=== PATIENT | male | born 1960 | race Caucasian/White ===

== ENCOUNTER → 2018-02-12 06:30 | Outpatient (CLI) | payer BC, SELFPAY ==
[2018-02-12 09:00] LABS: AST(SGOT) 15 U/L (15-37); Alanine Aminotransfer ALT/SGPT 25 U/L (16-61); Albumin, Serum 3.8 g/dL (3.2-5.0); Alkaline Phosphatase 35 U/L (45-117); Bilirubin, Direct 0.17 mg/dL (0.00-0.30); Cholesterol 144 mg/dL (200); Globulin 2.9 g/dL (2.2-4.2); High Density Lipoprotein 45 mg/dL; Protein, Total 6.7 g/dL (6.4-8.2); Triglycerides 108 mg/dL; Very Low Density Lipoprotein 22 mg/dL (5-40)
== END ==
PROVIDERS: Family Provider Internal Medicine; PCP Internal Medicine; Visit Provider Internal Medicine Cardiovascular Disease
DX: R07.9 Chest pain, unspecified (principal)
CPT/HCPCS: 36415; 80061; 80076

== ENCOUNTER → 2018-02-25 09:43 | Outpatient (CLI) | payer BC, SELFPAY ==
--- NOTE | 2018-02-25 09:45 | ECHOD_ITS ---
Reason For Study: CHEST PAIN Procedure This was a 2D Doppler, Color Flow transthoracic echocardiogram. Exam performed in department. Left Ventricle Normal size and thickness. The estimated ejection fraction is 65 %. Stage 2 diastolic dysfunction. No regional wall motion abnormalities noted. Right Ventricle Mildly dilated right ventricle. Normal systolic function. Atria The left atrium is mildly enlarged. The right atrium is mildly enlarged. Normal atrial septum. Mitral Valve The mitral valve is structurally normal. No prolapse or stenosis seen. Trivial mitral valve insufficiency. Tricuspid Valve Normal tricuspid valve. Trivial tricuspid valve insufficiency. Right ventricular systolic pressure estimated to be 23 mmHg. Aortic Valve Normal aortic valve. Trisinus/trileaflet aortic valve. Pulmonic Valve Normal pulmonic valve. Trivial pulmonic valve insufficiency. Great Vessels Normal aortic root. Normal arch. Normal inferior vena cava. Inferior vena cava collapse with sniff. Pericardium/Pleural No pericardial effusion. MMode/2D Measurements & Calculations LVIDd: 4.3 cm IVSd: 0.89 cm Ao root diam: 3.0 cm LVIDs: 3.0 cm LVPWd: 0.82 cm RVDd: 4.1 cm FS: 30.2 % LAV(MOD-bp): 67.1 ml LA A4 area: 21.6 cm2 RA A4 area: 18.5 cm2 LAV(MOD-bp) Indexed: 32.4 ml/m2 LAV(MOD-sp2): 71.3 ml LAV(MOD-sp4): 61.2 ml Doppler Measurements & Calculations MV E max eclio: 69.6 cm/sec Med Peak E' Celio: 9.7 cm/sec Ao V2 max: 105.8 cm/sec MV A max celio: 40.5 cm/sec E/E' med: 7.2 Ao max P.5 mmHg MV E/A: 1.7 LV V1 max: 87.7 cm/sec PA V2 max: 120.2 cm/sec PI end-d celio: 91.7 cm/sec LV V1 max P.6 mmHg TR max celio: 214.6 cm/sec TR max P.4 mmHg Interpretation Summary The estimated ejection fraction is 65 %. Stage 2 diastolic dysfunction. Mildly dilated right ventricle. The left atrium is mildly enlarged. Trivial mitral valve insufficiency. Right ventricular systolic pressure estimated to be 23 mmHg. There is no comparison study available. Ordering Physician: Jair Sanz Referring Physician: JAE TY MD Performed By: Sosa Chery, NIMISHA, RVT
== END ==
PROVIDERS: Family Provider Internal Medicine; PCP Internal Medicine; Visit Provider Internal Medicine Cardiovascular Disease
DX: R07.9 Chest pain, unspecified (principal)
CPT/HCPCS: 93306

== ENCOUNTER → 2018-04-01 13:38 | Outpatient (CLI) | payer BC, SELFPAY ==
--- NOTE | 2018-04-01 13:42 | STE_ITS ---
Reason For Study: CHEST PAIN Stress Results Protocol: Dillon Protocol Maximum Predicted HR: 163 bpm Target HR: 139 bpm% Max imum Predicted HR: 90 % DurationHeart Rate Stage (mm:ss) (bpm) BP BASELINE 71 138/84 STAGE 1 3:00 10 5 150/82 STAGE 2 3:00 12 7 158/72 STAGE 3 3:00 14 6 160/74 RECOVERY 98 132/80 Stress Duration: 9:00 mm:ss Maximum Stress HR: 146 bpm Baseline Echocardiogram Findings The estimated ejection fraction is 65 %. Stress Echo Wall motion Data Resting WMIntermediate WMStress WM Resting Wall Motion Wall Motion Stress No regional wall motion No regional wall motion abnormalities noted. abnormalities noted. EKG Data Normal intervals are noted. The patient exercised according to the regular Dillon protocol for a total duration of 9:00. The maximum heart rate attained was 146 beats per minute. This was 89% of maximum predicted heart rate. The patient exercised into stage 4 of the Dillon protocol. During stress, there were no ST or T wave changes noted to suggest ischemia. No clinical angina was noted. Interpretation Summary The estimated ejection fraction is 65 %. Normal, adequate, treadmill echocardiogram. Negative for ischemia by EKG and echocardiographic criteria. No anginal symptoms noted. No arrhythmias noted. Average exercise capacity for age. Appropriate blood pressure response to exercise. Test terminated due to dyspnea. Final LVEF of 70%. No complications. Ordering Physician: Jair Sanz Referring Physician: Jair Sanz Performed By: Parish Gottlieb RCS
== END ==
PROVIDERS: Family Provider Internal Medicine; PCP Internal Medicine; Visit Provider Internal Medicine Cardiovascular Disease
DX: R07.9 Chest pain, unspecified (principal)
CPT/HCPCS: 93017; 93350

== ENCOUNTER → 2018-04-22 10:59 | Outpatient (REF) | payer BC, SELFPAY | LOC: CVS 10:59 | PROVIDERS: Family Provider Internal Medicine; PCP Internal Medicine; Visit Provider Internal Medicine Cardiovascular Disease | DX: R00.2 Palpitations (principal) | CPT/HCPCS: 93270 ==

== ENCOUNTER → 2018-04-23 15:58 | Outpatient (CLI) | payer BC, SELFPAY ==
[2018-04-23 17:55] LABS: Anion Gap 7 (5-15); BUN 20 mg/dL (7-18); BUN/Creat Ratio 16.8 RATIO (10-20); Calcium,Total 8.8 mg/dL (8.5-10.1); Chloride 105 mmol/L (98-107); Creatinine, Serum 1.19 mg/dL (0.70-1.30); EST Glomerular Filtration Rate 67 mL/min (>60); Est Glom Filt Rate - Afr Amer 81 mL/min (>60); Glucose 80 mg/dL (74-106); Sodium Level 142 mmol/L (136-145)
== END ==
PROVIDERS: Family Provider Internal Medicine; PCP Internal Medicine; Visit Provider Nurse Practitioner Family
DX: I48.0 Paroxysmal atrial fibrillation (principal); R00.2 Palpitations
CPT/HCPCS: 36415; 80048

== ENCOUNTER → 2019-05-03 | Outpatient (REF) | payer BC, SELFPAY ==
[2019-05-03 09:19] VITALS: BMI 30.9
== END | disposition home or self-care (01) ==
LOC: CVS 10:06
PROVIDERS: Family Provider Internal Medicine; PCP Internal Medicine; Referring Provider Internal Medicine Cardiovascular Disease; Visit Provider Internal Medicine Cardiovascular Disease
DX: G45.9 Transient cerebral ischemic attack, unspecified (principal); I48.0 Paroxysmal atrial fibrillation; R40.4 Transient alteration of awareness
CPT/HCPCS: 93270

== ENCOUNTER → 2020-06-09 | Outpatient (CLI) | payer BC, SELFPAY ==
[2020-05-29 13:16] VITALS: BMI 31.5
--- NOTE | 2020-06-09 10:46 | ECHOD_ITS ---
Reason For Study: CP Procedure This was a 2D Doppler, Color Flow transthoracic echocardiogram. Exam performed in department. Left Ventricle Normal LV size. The estimated ejection fraction is 55 %. No evidence for diastolic dysfunction. No regional wall motion abnormalities noted. Right Ventricle Normal RV size. Normal systolic function. Atria Normal left atrium. Normal right atrium. No doppler evidence for ASD. Mitral Valve There is no mitral valve stenosis. Trivial mitral valve insufficiency. Tricuspid Valve There is no tricuspid stenosis. Trivial tricuspid valve insufficiency. Unable to estimate RV systolic pressure due to insufficient tricuspid regurgitant envelope. Aortic Valve Trisinus/trileaflet aortic valve. There is no aortic stenosis. No aortic valve insufficiency. Pulmonic Valve There is no pulmonic valvular stenosis. No pulmonic valve insufficiency. Great Vessels Normal aortic root. Pericardium/Pleural No pericardial effusion. MMode/2D Measurements & Calculations LVIDd: 4.0 cm IVSd: 1.4 cm LAV(MOD-bp): 61.9 ml LVIDs: 2.7 cm LVPWd: 0.82 cm LAV(MOD-bp) Indexed: 29.0 ml/m2 RVDd: 4.1 cm FS: 31.2 % LAV(MOD-sp2): 54.9 ml LAV(MOD-sp4): 62.2 ml LA A4 area: 22.1 cm2 RA A4 area: 18.2 cm2 Time Measurements MV dec time: 0.20 sec Doppler Measurements & Calculations MV E max celio: 72.1 cm/sec Lat Peak E' Celio: 12.8 cm/sec Med Peak E' Celio: 9.9 cm/sec MV A max celio: 52.0 cm/sec E/E' lat: 5.6 E/E' med: 7.3 MV E/A: 1.4 MV V2 max: 75.1 cm/sec MV P1/2t max celio: 76.4 cm/sec Ao V2 max: 105.5 cm/sec MV max P.3 mmHg MV P1/2t: 51.0 msec Ao max P.4 mmHg MV V2 mean: 40.1 cm/sec MV dec slope: 438.5 cm/sec2 MV mean P.75 mmHg MV V2 VTI: 28.0 cm MVA(P1/2t): 4.3 cm2 LV V1 max: 105.8 cm/sec PA V2 max: 124.2 cm/sec PI end-d celio: 82.8 cm/sec LV V1 max P.5 mmHg Interpretation Summary The estimated ejection fraction is 55 %. No evidence for diastolic dysfunction. Trivial mitral valve insufficiency. Ordering Physician: Jair Sanz Referring Physician: Jair Sanz Performed By: Parish Gottlieb RCS
== END | disposition home or self-care (01) ==
LOC: CVS 10:46
PROVIDERS: PCP Internal Medicine; Referring Provider Internal Medicine Cardiovascular Disease; Visit Provider Internal Medicine Cardiovascular Disease
DX: R07.9 Chest pain, unspecified (principal)
CPT/HCPCS: 93306

== ENCOUNTER → 2020-06-16 | Outpatient (CLI) | payer BC, SELFPAY ==
[2020-05-29 13:16] VITALS: BMI 31.5
--- NOTE | 2020-06-16 09:19 | STE_ITS ---
Reason For Study: Chest Pain Stress Results Protocol: Dillon Protocol Maximum Predicted HR: 160 bpm Target HR: 136 bpm % Maximum Predicted HR: 93 % DurationHeart Rate Stage (mm:ss) (bpm) BP Comment Baseline 50 126/78No Chest Pain Dillon Protocol Stage I 3:00 94 134/72No Chest Pain Dillon Protocol Stage II 3:00 109 152/72No Chest Pain Dillon Protocol Stage III 3:00 136 172/74No Chest Pain; Mild Dyspnea Dillon Protocol Stage IV 0:30 148 / No Chest Pain; Mild to Moderate Dyspnea Recovery 90 120/76No Chest Pain Stress Duration: 9:30 mm:ss Maximum Stress HR: 148 bpm METS: 11 Baseline Echocardiogram Findings Stress Echo Wall motion Data Resting WM Intermediate WM Stress WM Resting Wall Motion Wall Motion Stress All segments Normal. All segments Hyperkinetic. Ejection Fraction 55 %. Ejection Fraction 70 %. Stress Results Heart rate response: Appropriate Blood pressure response: Normal resting blood pressure-appropriate response Arrhythmias: Isolated PVC during exercise Functional capacity: Good Stopped secondary to: Dyspnea. EKG Data Baseline ECG: Sinus bradycardia. Peak exercise ECG: No obvious ECG changes. Symptoms with Stress No report of chest discomfort during exercise or recovery. Interpretation Summary 1. Negative (adequate) stress echocardiogram Ordering Physician: Jair Sanz M.D. Referring Physician: Garland Almeida M.D. Performed By: Martha Murry RDCS
== END | disposition home or self-care (01) ==
PROVIDERS: PCP Internal Medicine; Referring Provider Internal Medicine Cardiovascular Disease; Visit Provider Internal Medicine Cardiovascular Disease
DX: R07.9 Chest pain, unspecified (principal)
CPT/HCPCS: 93017; 93350

== ENCOUNTER → 2022-03-27 | Outpatient (CLI) | payer SELFPAY, BC ==
--- NOTE | 2022-03-27 10:55 | STRESSREP ---
Stress Test Report Date: 03-27-2022 Procedure: Exercise tolerance test/imaging study Indications: Chest pain; palpitations; PAF Consent: Per the patient Procedure: The patient exercised on a Dillon protocol for 7 minutes and 32 seconds minutes completing Stage II and 1 minute and 32 seconds of Stage III achieving a peak heart rate of 150 bpm (94% predicted maximal heart rate) with a peak blood pressure 148/62 mmHg and a peak MET capacity of 10 METs. The baseline ECG demonstrated normal sinus rhythm. The peak exercise ECG demonstrated somatic/motion artifact with beat to beat nonspecific ST segment variability. There was a rare PVC during exercise. The functional capacity was considered good. There was no complaint of chest discomfort during exercise or recovery. The examination was discontinued secondary to dyspnea. Impression: 1. Technically adequate (percent predicted maximal heart rate greater than 85%) exercise tolerance test 2. Peak exercise ECG with somatic/motion artifact with beat to beat nonspecific ST segment variability 3. There was a rare PVC during exercise 4. Nuclear images pending Myocardial perfusion imaging study: Technique: The patient was injected with 14.9 mCi of technetium 99m Cardiolite and subsequently rest SPECT Cardiolite nuclear imaging was obtained in the horizontal long, vertical long, and short axis views. The patient exercised on a Dillon protocol for 7 minutes and 32 seconds minutes completing Stage II and 1 minute and 32 seconds of Stage III achieving a peak heart rate of 150 bpm (94% predicted maximal heart rate) with a peak blood pressure 148/62 mmHg and a peak MET capacity of 10 METs. The patient was injected with 44.8 mCi of technetium 99m Cardiolite and subsequently stress SPECT Cardiolite nuclear imaging was obtained in the horizontal long, vertical long, and short axis views. A gated Cardiolite study at peak stress was obtained. Interpretation: Rest and stress SPECT Cardiolite nuclear imaging status post realignment, normalization, and attenuation correction, demonstrates the appearance of relative uniform tracer uptake and myocardial perfusion appearing within normal limits. There is end systolic thickening and brightening. The gated Cardiolite study demonstrates myocardial thickening and inward wall motion. The reported LVEF is 76%. Impression: 1. Rest and stress SPECT Cardiolite nuclear imaging demonstrate relative uniform tracer uptake and myocardial perfusion appearing within normal limits. 2. The gated Cardiolite study reports an LVEF of 76%. This note was generated with [employer] software. It may contain incorrect words, spelling, and punctuation that were not noted in checking the note before signing.
== END | disposition home or self-care (01) ==
PROVIDERS: PCP Internal Medicine; Referring Provider Internal Medicine Cardiovascular Disease; Visit Provider Internal Medicine Cardiovascular Disease
DX: R07.9 Chest pain, unspecified (principal); I48.0 Paroxysmal atrial fibrillation; E78.5 Hyperlipidemia, unspecified; G54.9 Nerve root and plexus disorder, unspecified; Z87.898 Personal history of other specified conditions
CPT/HCPCS: 78452; 93017; A9500; A4216

== ENCOUNTER 2023-12-23 14:47 | Emergency (ER) | payer BC, SELFPAY ==
[2023-12-23 14:48] VITALS: BP 117/82; PULSE 67; RESP 15; TEMP 35.9; O2SAT 100; BMI 32.8
[2023-12-23 15:38] LABS: Absolute Lymphocyte Count 1.97 X10^3/uL (0.83-4.51); Absolute Neutrophil Count 2.2 X10^3/uL (2.0-7.7); Basophil# 0.02 X10^3/uL; Basophil% 0.4 % (0-1); Eosinophil# 0.09 X10^3/uL; Eosinophils% 1.9 % (0-5); Hemoglobin 14.9 g/dL (13.0-16.5); Lymphocyte # 1.97 X10^3/ul (0.83-4.51); Lymphocyte % 41.4 % (19-41); Mean Corp Hgb Conc 33.1 g/dL (32-36); Mean Corpuscular Hgb 31.3 pg (27.0-32.0); Mean Corpuscular Volume 94.5 fL (80-94); Mean Platelet Vol. 10.2 fl (6.2-12.0); Monocyte# 0.43 X10^3/uL; NRBC Flagged by Analyzer 0 % (0-5); Neutrophil # 2.24 X10^3/uL (2.7-7.7); Neutrophil % 47.1 % (47-70); Platelet Count 229 K/mm3 (150-450); RBC Distribution Width CV 12.2 % (11.6-14.6); RBC Distribution Width SD 42.5 fl (35.1-43.9); Red Blood Count 4.76 M/mm3 (4.6-6.2); White Blood Count 4.8 K/mm3 (4.4-11.0)
[2023-12-23 15:54] LABS: ALB/GLOB Ratio 1.2 RATIO (0.9-2.4); AST(SGOT) 16 U/L (15-37); Alanine Aminotransfer ALT/SGPT 22 U/L (16-61); Albumin, Serum 3.7 g/dL (3.2-5.0); Alkaline Phosphatase 40 U/L (45-117); Anion Gap 5 (5-15); BUN 15 mg/dL (7-18); BUN/Creat Ratio 13.5 RATIO (10-20); Calcium,Total 9.1 mg/dL (8.5-10.1); Chloride 106 mmol/L (98-107); Creatinine, Serum 1.11 mg/dL (0.70-1.30); EST Glomerular Filtration Rate 71 mL/min (>60); Est Glom Filt Rate - Afr Amer 86 mL/min (>60); Estimated Creatinine Clearance 82.16 ml/min; Glucose 99 mg/dL (74-106); Potassium 4.7 mmol/L (3.5-5.1); Protein, Total 6.7 g/dL (6.4-8.2); Sodium Level 141 mmol/L (136-145)
--- NOTE | 2023-12-23 16:13 | CT_ITS ---
STUDY: CT ABDOMEN AND PELVIS WITH CONTRAST REASON FOR EXAM: Male, 63 years old. abd pain RADIATION DOSAGE (If Supplied By Facility): CTDIvol = ( 19.07 ) mGy, DLP = ( 1312.13 ) mGycm TECHNIQUE: Transaxial images were obtained from the dome of the diaphragm to the symphysis pubis without oral contrast. Oral and amp; IV Gastrografin and amp; 100mL Isovue-300 was administered. Sagittal and coronal images were reconstructed. Individualized dose optimization techniques were used for this CT. COMPARISON: None. FINDINGS: Mild bibasilar interstitial thickening. The visualized portions of the heart are within normal limits. Normal liver. Normal gallbladder and extrahepatic biliary system. Normal spleen. Normal pancreas. Normal bilateral adrenal glands. Normal right kidney. Normal left kidney. Normal visualized stomach. Mild nonspecific ileus.. No evidence for acute appendicitis Normal abdominal aorta. Normal inferior vena cava. Normal retroperitoneum. Normal urinary bladder. Bilateral fat-containing inguinal hernias larger on the left. Lumbar spine demonstrates mild degenerative changes. CT/Abdomen/Pelvis WITH Contrast IMPRESSION: Mild ileus. No evidence for small bowel obstruction or other acute abnormality. Electronically Signed: Tres Crook MD at 18:15 EDT ,
--- NOTE | 2023-12-23 16:14 | EX.ED.DYSGE1 ---
HPI History of Present Illness Chief Complaint: Abd Pain Informant: patient Onset/Context/Timing Onset: Yesterday Narrative Narrative: Patient presents secondary to abdominal pain. He states he developed mid abdominal pain yesterday that worsened today. Reports nausea but no vomiting. He had normal bowel movement yesterday but no bowel movement and not passing gas today. He denies no prior abdominal surgeries. No fever or chills. [facility] Medical History (Updated 12/23/23 @ 18:[address] Chelsie Bass MD) Altered awareness, transient Chest pain Herpes History of chest pain Hyperlipidemia Obesity Palpitations Paroxysmal atrial fibrillation TIA (transient ischemic attack) Home Medications magnesium 250 mg tablet 250 mg PO DAILY 05/01/19 [History Last Taken Unknown] lactobacillus combination no.9 4 billion cell capsule (Adult 50 Plus Probiotic) 4,000 mmu cells PO DAILY 05/03/19 [History Last Taken Unknown] ascorbic acid (vitamin C) 500 mg tablet 500 mg PO DAILY 09/10/21 [History Last Taken Unknown] cholecalciferol (vitamin D3) 10 mcg (400 unit) tablet 10 mcg PO DAILY 04/10/22 [History Last Taken Unknown] metoprolol succinate 25 mg tablet,extended release 24 hr 12.5 mg (1/2 x 25 mg) PO BID #90 tabs 04/10/23 [Rx Last Taken Unknown] rivaroxaban 20 mg tablet (Xarelto) 20 mg PO DAILY #90 tabs 04/10/23 [Rx Last Taken Unknown] rosuvastatin 20 mg tablet See Rx Instructions .Route .COMPLEX #90 tabs 04/10/23 [Rx Last Taken Unknown] Allergy/AdvReac Type Severity Reaction Status Date / Time No Known Allergies Allergy Verified 12/23/23 14:50 Family History Mother Diabetes Father Heart disease PPM for symptomatic bradycardia Surgical History H/O nasal septoplasty Social History Smoking Status: Former smoker quit date: 10/06/94 pack-years: 20 alcohol intake: current alcohol intake frequency: holidays/special occasions only ROS ROS ED Constitutional Constitutional ED: Denies chills or fever(s) Eyes Eyes: Denies change in vision ENT ENT ED: Denies rhinorrhea or sore throat Cardiovascular Cardiovascular: Denies chest pain or palpitations Respiratory/Chest Respiratory/Chest: Denies cough or dyspnea Gastrointestinal Gastrointestinal: Reports abdominal pain and nausea; Denies vomiting Genitourinary Genitourinary ED: Denies dysuria Musculoskeletal Musculoskeletal: Denies back pain or extremity pain Integumentary Denies Abrasions or rash Neurologic Neurologic: Denies headache(s) or weakness Psychiatric Psychiatric: Denies anxiety or depression Allergic/Immunologic Allergic/Immunologic ED: Denies lip swelling or urticaria EXAM Physical Exam Const Vital Signs: 12/23/23 14:48 12/23/23 16:48 12/23/23 18:00 Temperature 96.7 F L 97.2 F L 96.9 F L Temperature Source Temporal Oral Oral Pulse Rate 67 71 82 Respiratory Rate 15 16 16 Blood Pressure 117/82 H 124/86 H 134/76 H Blood Pressure Mean 93 98 95 Pulse Ox 100 98 97 Oxygen Delivery Method Room Air Room Air Positive well nourished and well developed General Appearance ED: well developed HEENT Reports moist mucous membranes Eyes EOMs intact bilaterally Chest Wall inspection of chest normal and palpation of chest normal Resp normal respiratory effort and clear to auscultation bilaterally Cardio regular rate and regular rhythm GI GI Narrative: Abdomen soft with mild diffuse tenderness. No guarding or rebound. Hypoactive but present bowel sounds are noted. Extremity normal to inspection Neuro oriented x3 and no sensory deficits noted Motor Exam: strength 5/5 throughout Psych mental status grossly normal Skin no rashes or lesions noted MDM MDM MDM Narrative Medical decision making narrative: Nursing protocol lab work was already initiated. White count is normal at 4.8 with a hemoglobin of 14.9. Normal differential. Chemistry studies unremarkable. LFTs normal. The time my examination CT scan with p.o. and IV contrast ordered to evaluate for potential bowel obstruction, ileus, colitis. History & Record Review Discussion w/independent historian: Patient Lab Data Attestation: I reviewed the patient's lab results. Labs: Laboratory Results - last 24 hr 12/23/23 12/23/23 15:28 16:23 WBC 4.8 RBC 4.76 Hgb 14.9 Hct 45.0 MCV 94.5 H MCH 31.3 MCHC 33.1 RDW Std Deviation 42.5 RDW Coeff of Abdi 12.2 Plt Count 229 MPV 10.2 Immature Gran % (Auto) 0.200 Neut % (Auto) 47.1 Lymph % (Auto) 41.4 H Butts % (Auto) 9.0 Eos % (Auto) 1.9 Baso % (Auto) 0.4 Absolute Neuts (auto) 2.2 Absolute Lymphs (auto) 1.97 Nucleated RBC % 0 Sodium 141 Potassium 4.7 Chloride 106 Carbon Dioxide 30.0 Anion Gap 5 BUN 15 Creatinine 1.11 Estim Creat Clear Calc 82.16 Est GFR (MDRD) Af Amer 86 Est GFR (MDRD) Non-Af 71 BUN/Creatinine Ratio 13.5 Glucose 99 Calcium 9.1 Total Bilirubin 0.40 AST 16 ALT 22 Alkaline Phosphatase 40 L Total Protein 6.7 Albumin 3.7 Globulin 3.0 Albumin/Globulin Ratio 1.2 Urine Color Yellow Urine Clarity Clear Urine pH 6.0 Ur Specific [place] 1.015 Urine Protein Negative Urine Glucose (UA) Normal Urine Ketones Negative Urine Occult Blood Negative Urine Nitrite Negative Urine Bilirubin Negative Urine Urobilinogen Normal Ur Leukocyte Esterase Negative Urine RBC 0 SEEN Urine WBC 0 SEEN Ur Squamous Epith Cells 0 SEEN Urine Bacteria 0 SEEN Urine Mucus 0 SEEN Radiography Diagnostic Testing: Clinical Impression(s) from Imaging Studies Abdomen/Pelvis CT 12/23/23 16:13 IMPRESSION: Mild ileus. No evidence for small bowel obstruction or other acute abnormality. Electronically Signed: Tres Crook MD at 18:15 EDT Reading Location ID and State: [address] [place] [address] Tel , Service support , Treatment and Re-Evaluation :: CT scan of the abdomen pelvis reveals a mild ileus. No evidence of small bowel obstruction. On repeat evaluation patient resting comfortably. He states he has started passing some gas while has been here in the emergency room. We discussed the importance of a bland diet with small meals at a time and walking to try to encourage bowel function. He is given return instructions. Discharge Plan Triage Chief Complaint: Abd Pain ED Provider: Chelsie Bass Dx/Rx/DC Orders Clinical Impression: Ileus Instructions: Ileus Prescriptions: No Action magnesium 250 mg tablet 250 mg PO DAILY Adult 50 Plus Probiotic 4 billion cell capsule 4,000 mmu cells PO DAILY ascorbic acid (vitamin C) 500 mg tablet 500 mg PO DAILY cholecalciferol (vitamin D3) 10 mcg (400 unit) tablet 10 mcg PO DAILY metoprolol succinate 25 mg tablet extended release 24 hr 12.5 mg PO BID Qty: 90 4RF Xarelto 20 mg tablet 20 mg PO DAILY Qty: 90 3RF rosuvastatin 20 mg tablet See Rx Instructions .ROUTE .COMPLEX Qty: 90 3RF Dose Instruction: 20 MG BY MOUTH DAILY Rx Instructions: 20 MG BY MOUTH DAILY Primary Care Provider: Nicholas Rodriguez Referrals: Nicholas Rodriguez MD [Primary Care Provider] - 3-5 Days if not improving Disposition Disposition: Home, Self Care
[2023-12-23 16:29] LABS: Bacteria 0 SEEN /hpf (None Seen); Mucous, Urine 0 SEEN /hpf (<or=2+); Red Blood Cells-Urine 0 SEEN /hpf (0-5); Squamous Epithelial Cells - UA 0 SEEN /hpf (0-5); White Blood Cells 0 SEEN /hpf (0-5)
[2023-12-23 16:37] LABS: Color, Urine Yellow (Yellow); Glucose, Dipstick Normal (Normal); Ketone-Dipstick Negative (Negative); Leukocyte Esterase-Dipstick Negative /ul (Negative); Nitrite-Dipstick Negative (Negative); Occult Blood-Urine Negative /ul (Negative); Protein-Dipstick Negative (Negative); Specific Gravity, Urine 1.015 (1.002-1.030); Urine Bilirubin Dipstick Negative (Negative); Urine Clarity Clear (Clear); Urine Urobilinogen Normal (Normal)
[2023-12-23 16:48] VITALS: BP 124/86; PULSE 71; RESP 16; TEMP 36.2; O2SAT 98
[2023-12-23 18:00] VITALS: BP 134/76; PULSE 82; RESP 16; TEMP 36.1; O2SAT 97
[2023-12-23 18:59] VITALS: BP 124/78; PULSE 65; RESP 18; TEMP 36.4; O2SAT 99
== END 2023-12-23 18:59 | disposition home or self-care (01) ==
PROVIDERS: Emergency Provider Emergency Medicine; PCP Internal Medicine; Visit Provider Emergency Medicine
DX: K56.7 Ileus, unspecified (principal); Z87.891 Personal history of nicotine dependence
CPT/HCPCS: 74177; 80053; 81001; 85025; 99283; Q9967; A4216

== ENCOUNTER → 2024-03-18 | Outpatient (CLI) | payer BC, SELFPAY ==
--- NOTE | 2024-03-18 06:56 | ECHOD_ITS ---
Reason For Study: EDEMA Procedure This was a 2D Doppler, Color Flow transthoracic echocardiogram. The study was technically difficult. Exam performed supine due to recent left shoulder surgery and shoulder pain. Exam performed in department. Left Ventricle Normal LV size. Left ventricular systolic function is normal. The estimated ejection fraction is 60 %. No regional wall motion abnormalities noted. Right Ventricle Normal RV size. Normal systolic function. Atria Normal left atrium. Normal right atrium. Mitral Valve Normal mitral valve. Tricuspid Valve Normal tricuspid valve. Aortic Valve Trisinus/trileaflet aortic valve. Pulmonic Valve Normal pulmonic valve. Great Vessels Normal aortic root. The pulmonary artery is normal size. Inferior vena cava collapse with respiration. Pericardium/Pleural No pericardial effusion. MMode/2D Measurements & Calculations LVIDd: 4.5 cm IVSd: 1.0 cm Ao root diam: 3.2 cm LVIDs: 3.3 cm LVPWd: 1.0 cm FS: 26.1 % LAV(MOD-bp): 63.3 ml LVAd ap4: 27.1 cm2 LVAd ap2: 25.5 cm2 LAV(MOD-bp) Indexed: 28.6 ml/m2 LVLd ap4: 8.0 cm LVLd ap2: 8.2 cm LAV(MOD-sp2): 62.5 ml EDV(MOD-sp4): 79.6 ml EDV(MOD-sp2): 68.2 ml LAV(MOD-sp4): 62.0 ml EDV(sp4-el): 77.5 ml EDV(sp2-el): 67.5 ml LVAs ap4: 15.2 cm2 LVAs ap2: 13.8 cm2 LVLs ap4: 6.4 cm LVLs ap2: 6.4 cm ESV(MOD-sp4): 32.5 ml ESV(MOD-sp2): 26.2 ml ESV(sp4-el): 30.7 ml ESV(sp2-el): 25.2 ml EF(MOD-sp4): 59.1 % EF(MOD-sp2): 61.6 % EF(sp4-el): 60.4 % SV(MOD-sp4): 47.1 ml SV(MOD-sp2): 42.0 ml SV(sp4-el): 46.8 ml LA dimension(2D): 3.7 cm LA A4 area: 21.6 cm2 RA A4 area: 18.4 cm2 TAPSE: 1.8 cm Time Measurements MV dec time: 0.24 sec Doppler Measurements & Calculations MV E max celio: 48.8 cm/sec Lat Peak E' Celio: 11.9 cm/sec Med Peak E' Celio: 7.8 cm/sec MV A max celio: 47.3 cm/sec E/E' lat: 4.1 E/E' med: 6.2 MV E/A: 1.0 MV V2 max: 64.3 cm/sec MV P1/2t max celio: 60.7 cm/sec Ao V2 max: 108.2 cm/sec MV max P.7 mmHg MV P1/2t: 78.4 msec Ao max P.7 mmHg MV V2 mean: 35.6 cm/sec MV dec slope: 226.7 cm/sec2 Ao V2 mean: 79.0 cm/sec MV mean P.60 mmHg Ao mean P.8 mmHg MV V2 VTI: 19.1 cm MVA(P1/2t): 2.8 cm2 Ao V2 VTI: 24.3 cm AV (velocity ratio): 0.87 LV V1 max: 92.6 cm/sec PA V2 max: 131.9 cm/sec LV V1 max P.4 mmHg PA V2 mean: 83.5 cm/sec LV V1 mean P.9 mmHg LV V1 mean: 64.3 cm/sec LV V1 VTI: 21.0 cm ECHO/Echo Complete Interpretation Summary Normal LV size. Left ventricular systolic function is normal. The estimated ejection fraction is 60 %. Structurally normal valves. Ordering Physician: Kurt Montiel Referring Physician: Nicholas Rodriguez Performed By: Celine Miller, AIDANCS, RVT
== END | disposition home or self-care (01) ==
LOC: CVS 06:51
PROVIDERS: PCP Internal Medicine; Referring Provider Nurse Practitioner Family; Visit Provider Nurse Practitioner Family
DX: R60.0 Localized edema (principal); I48.0 Paroxysmal atrial fibrillation
CPT/HCPCS: 93306

== ENCOUNTER → 2024-04-22 | Outpatient (CLI) | payer BC, SELFPAY ==
[2024-04-22 11:09] LABS: Vitamin B12 375 pg/mL (211-911)
[2024-04-22 11:31] LABS: Anion Gap 8 (5-15); BUN 25 mg/dL (7-18); BUN/Creat Ratio 21.6 RATIO (10-20); Calcium,Total 9.3 mg/dL (8.5-10.1); Chloride 101 mmol/L (98-107); Creatinine, Serum 1.16 mg/dL (0.70-1.30); EST Glomerular Filtration Rate 67 mL/min (>60); Est Glom Filt Rate - Afr Amer 82 mL/min (>60); Glucose 81 mg/dL (74-106); Potassium 4.2 mmol/L (3.5-5.1); Sodium Level 138 mmol/L (136-145)
== END | disposition home or self-care (01) ==
PROVIDERS: PCP Internal Medicine; Referring Provider Physician Assistant Medical; Visit Provider Physician Assistant Medical
DX: R53.83 Other fatigue (principal); I48.0 Paroxysmal atrial fibrillation; R60.0 Localized edema; E78.00 Pure hypercholesterolemia, unspecified
CPT/HCPCS: 36415; 80048; 82607